=== PATIENT | male | born 1955 | race Two or more races ===

== ENCOUNTER 2022-05-21 10:27 | Outpatient (CLI) | payer OTHER | END 2022-05-21 10:30 | disposition home or self-care (01) | LOC: NUCLEAR 10:27 | PROVIDERS: ATTEND Internal Medicine Cardiovascular Disease | DX: I10 Essential (primary) hypertension (principal); J44.9 Chronic obstructive pulmonary disease, unspecified ==

== ENCOUNTER 2022-05-27 10:53 | Outpatient (CLI) | payer OTHER | END 2022-05-27 10:54 | disposition home or self-care (01) | LOC: LAB 10:53 | PROVIDERS: ATTEND Internal Medicine Cardiovascular Disease | DX: I10 Essential (primary) hypertension (principal); E11.9 Type 2 diabetes mellitus without complications; E03.9 Hypothyroidism, unspecified; E78.2 Mixed hyperlipidemia; Z12.11 Encounter for screening for malignant neoplasm of colon; E55.9 Vitamin D deficiency, unspecified; N40.0 Benign prostatic hyperplasia without lower urinary tract symptoms; J44.9 Chronic obstructive pulmonary disease, unspecified ==

== ENCOUNTER → 2022-05-27 | Outpatient (CLI) | payer OTHER | END | disposition home or self-care (01) | LOC: SONOGRAMA 12:08 | PROVIDERS: ATTEND Internal Medicine Cardiovascular Disease | DX: R10.9 Unspecified abdominal pain (principal); N40.0 Benign prostatic hyperplasia without lower urinary tract symptoms ==

== ENCOUNTER 2022-05-28 07:23 | Outpatient (CLI) | payer OTHER | END 2022-05-28 07:24 | disposition home or self-care (01) | LOC: LAB 07:23 | PROVIDERS: ATTEND Internal Medicine Cardiovascular Disease | DX: I10 Essential (primary) hypertension (principal); E11.9 Type 2 diabetes mellitus without complications; E03.9 Hypothyroidism, unspecified; E78.2 Mixed hyperlipidemia; Z12.11 Encounter for screening for malignant neoplasm of colon; E55.9 Vitamin D deficiency, unspecified; N40.0 Benign prostatic hyperplasia without lower urinary tract symptoms ==

== ENCOUNTER 2022-08-15 10:41 | Outpatient (CLI) | payer OTHER | END 2022-08-15 10:43 | disposition home or self-care (01) | LOC: LAB 10:41 | PROVIDERS: ATTEND Internal Medicine Nephrology | DX: N18.31 Chronic kidney disease, stage 3a (principal); R80.0 Isolated proteinuria ==

== ENCOUNTER → 2022-09-09 13:34 | Outpatient (CLI) | payer OTHER | END | disposition home or self-care (01) | LOC: LAB 13:34 | PROVIDERS: ATTEND Internal Medicine Cardiovascular Disease | DX: J11.1 Influenza due to unidentified influenza virus with other respiratory manifestations (principal); A49.3 Mycoplasma infection, unspecified site; Z20.822 Contact with and (suspected) exposure to COVID-19 ==

== ENCOUNTER 2022-10-14 11:12 | Outpatient (CLI) | payer OTHER | END 2022-10-14 11:15 | disposition home or self-care (01) | LOC: LAB 11:12 | PROVIDERS: ATTEND Urology | DX: N40.1 Benign prostatic hyperplasia with lower urinary tract symptoms (principal); I10 Essential (primary) hypertension; E78.5 Hyperlipidemia, unspecified; Z12.5 Encounter for screening for malignant neoplasm of prostate; N39.0 Urinary tract infection, site not specified ==

== ENCOUNTER 2022-12-18 12:00 | Outpatient (CLI) | payer OTHER | END 2022-12-18 12:03 | disposition home or self-care (01) | LOC: LAB 12:00 | PROVIDERS: ATTEND Internal Medicine Nephrology | DX: N18.2 Chronic kidney disease, stage 2 (mild) (principal); R80.0 Isolated proteinuria; I11.9 Hypertensive heart disease without heart failure; E78.00 Pure hypercholesterolemia, unspecified; E55.9 Vitamin D deficiency, unspecified ==

== ENCOUNTER 2022-12-27 12:27 | Outpatient (CLI) | payer OTHER | END 2022-12-27 12:29 | disposition home or self-care (01) | LOC: LAB 12:27 | PROVIDERS: ATTEND Internal Medicine Cardiovascular Disease | DX: J11.1 Influenza due to unidentified influenza virus with other respiratory manifestations (principal); A49.3 Mycoplasma infection, unspecified site; Z20.822 Contact with and (suspected) exposure to COVID-19 ==

== ENCOUNTER 2023-01-14 09:19 | Outpatient (CLI) | payer OTHER | END 2023-01-14 09:22 | disposition home or self-care (01) | LOC: LAB 09:19 | PROVIDERS: ATTEND Internal Medicine Cardiovascular Disease | DX: E11.9 Type 2 diabetes mellitus without complications (principal); E03.9 Hypothyroidism, unspecified; E78.2 Mixed hyperlipidemia; I10 Essential (primary) hypertension ==

== ENCOUNTER 2023-02-28 08:52 | Outpatient (CLI) | payer OTHER | END 2023-02-28 08:53 | disposition home or self-care (01) | LOC: LAB 08:52 | DX: N40.1 Benign prostatic hyperplasia with lower urinary tract symptoms (principal); N39.0 Urinary tract infection, site not specified ==

== ENCOUNTER 2023-07-28 08:04 | Outpatient (CLI) | payer OTHER ==
[2023-07-28 08:45] LABS: HEMATOCRIT 38.7 % (39.0-48.0); HEMOGLOBIN 13.1 g/dL (13-16.00); MEAN CELL VOLUME 90.2 fL (80.0-100.00); MEAN CORPUSCULAR HEMOGLOBIN 30.5 pg (27.00-32.0); MEAN CORPUSCULAR HGB CONC 33.8 g/dl (32.0-36.0); PLATELET COUNT 156 K/uL (150-450); RED BLOOD COUNT 4.29 M/uL (4.00-6.00); RED CELL DISTRIBUTION WIDTH 13.6 % (11.5-14.5)
[2023-07-28 09:00] LABS: PH,URINE 7.5 (5.0-8.0); URINE APPEARANCE Clear; URINE BILIRRUBIN Negative (NEGATIVE); URINE BLOOD Negative; URINE COLOR Yellow; URINE GLUCOSE Negative (NEGATIVE); URINE LEUKOCYTE Negative; URINE NITRATE Negative; URINE PROTEIN Negative (NEGATIVE); URINE UROBILINOGEN 0.2 E.U./dl
[2023-07-28 09:03] LABS: URINE EPITHELIAL CELLS 0.3 uL (0.0-38.8); URINE RBC 1.1 uL (0.0-20.8); URINE WBC 0.3 uL (0.0-23.2)
[2023-07-28 10:28] LABS: ALBUMIN 3.4 gm/dL (3.4-5.0); BILIRUBIN TOTAL 0.31 mg/dL (0.3-1.2); CALCIUM 8.7 mg/dL (8.5-10.1); CHOL HDL RATIO 2.6 (0-5.0); CREATININE SERUM 1.19 mg/dL (0.70-1.30); GFR 60.44; GLOBULINA 3.6 G/DL (2.4-3.5); POTASSIUM 4.14 mEq/L (3.5-5.1); PROSTATIC SPECIFIC ANTIGEN 0.5 NG/ML (0.010-4.00); T4 TOTAL 8.86 UG/DL (4.5-12.1); TSH 1.14 uIU/mL (0.358-3.74)
[2023-07-28 10:47] LABS: T3 TOTAL 1.26 ng/ml (0.846-2.02); VITAMIN D3 25 HYDROXY 38.08 ng/ml (30-120)
[2023-07-28 16:31] LABS: ob NEGATIVE (NEGATIVE)
== END 2023-07-28 08:05 | disposition home or self-care (01) ==
LOC: LAB 08:04
PROVIDERS: ATTEND Internal Medicine Cardiovascular Disease
DX: I10 Essential (primary) hypertension (principal); E11.9 Type 2 diabetes mellitus without complications; E03.9 Hypothyroidism, unspecified; E78.2 Mixed hyperlipidemia; Z12.11 Encounter for screening for malignant neoplasm of colon; N40.0 Benign prostatic hyperplasia without lower urinary tract symptoms; E55.9 Vitamin D deficiency, unspecified

== ENCOUNTER → 2023-08-01 07:39 | Outpatient (CLI) | payer OTHER ==
[2023-08-01 08:13] LABS: HEMATOCRIT 38.4 % (39.0-48.0); HEMOGLOBIN 13.1 g/dL (13-16.00); MEAN CELL VOLUME 89.3 fL (80.0-100.00); MEAN CORPUSCULAR HEMOGLOBIN 30.3 pg (27.00-32.0); PLATELET COUNT 173 K/uL (150-450); RED CELL DISTRIBUTION WIDTH 13.6 % (11.5-14.5)
[2023-08-01 08:37] LABS: MYCOPLASMA PNEUMONIAE IGM NON REACTIVE (NO REACTIVE)
== END | disposition home or self-care (01) ==
LOC: LAB 07:39
PROVIDERS: ATTEND Internal Medicine Cardiovascular Disease
DX: J11.1 Influenza due to unidentified influenza virus with other respiratory manifestations (principal); A49.3 Mycoplasma infection, unspecified site; Z20.822 Contact with and (suspected) exposure to COVID-19

== ENCOUNTER → 2024-02-04 | Outpatient (CLI) | payer OTHER ==
[2024-02-04 12:26] LABS: URINE BILIRRUBIN Negative (NEGATIVE); URINE BLOOD Negative; URINE COLOR Yellow; URINE GLUCOSE Negative (NEGATIVE); URINE KETONE Negative (NEGATIVE); URINE LEUKOCYTE Negative; URINE NITRATE Negative; URINE PROTEIN Negative (NEGATIVE)
[2024-02-04 12:31] LABS: URINE BACTERIA 25.1 uL (0.0-1933)
[2024-02-04 12:35] LABS: URINE APPEARANCE CLEAR; URINE CAST 0.15 uL (0.0-1.40); URINE EPITHELIAL CELLS 0.7 uL (0.0-38.8); URINE RBC 1.2 uL (0.0-20.8); URINE WBC 1.5 uL (0.0-23.2)
[2024-02-04 12:46] LABS: HEMATOCRIT 37.3 % (39.0-48.0); HEMOGLOBIN 12.7 g/dL (13-16.00); MEAN CELL VOLUME 89.4 fL (80.0-100.00); MEAN CORPUSCULAR HEMOGLOBIN 30.4 pg (27.00-32.0); PLATELET COUNT 186 K/uL (150-450); RED BLOOD COUNT 4.18 M/uL (4.00-6.00); RED CELL DISTRIBUTION WIDTH 13.5 % (11.5-14.5)
[2024-02-04 14:00] LABS: ALBUMIN 3.6 gm/dL (3.4-5.0); BILIRUBIN TOTAL 0.47 mg/dL (0.3-1.2); CALCIUM 8.8 mg/dL (8.5-10.1); CHOL HDL RATIO 2.9 (0-5.0); CREATININE SERUM 1.11 mg/dL (0.70-1.30); GFR 65.49; GLOBULINA 3.8 G/DL (2.4-3.5); POTASSIUM 4.24 mEq/L (3.5-5.1); TOTAL PROTEIN 7.4 gm/dL (6.4-8.2)
== END | disposition home or self-care (01) ==
LOC: LAB 11:46
PROVIDERS: ATTEND Internal Medicine Cardiovascular Disease
DX: E11.9 Type 2 diabetes mellitus without complications (principal); E78.2 Mixed hyperlipidemia; I10 Essential (primary) hypertension

== ENCOUNTER 2024-05-17 10:01 | Outpatient (CLI) | payer OTHER ==
[2024-05-17 11:00] LABS: PH,URINE 6.5 (5.0-8.0); URINE APPEARANCE Clear; URINE BILIRRUBIN Negative (NEGATIVE); URINE BLOOD Negative; URINE COLOR Yellow; URINE GLUCOSE Negative (NEGATIVE); URINE KETONE Negative (NEGATIVE); URINE LEUKOCYTE Negative; URINE NITRATE Negative; URINE PROTEIN Negative (NEGATIVE); URINE UROBILINOGEN 0.2 E.U./dl
[2024-05-17 11:02] LABS: URINE RBC 3.3 uL (0.0-20.8)
[2024-05-17 11:05] LABS: URINE EPITHELIAL CELLS 0.6 uL (0.0-38.8); URINE WBC 0.6 uL (0.0-23.2)
[2024-05-17 11:13] LABS: HEMATOCRIT 40.1 % (39.0-48.0); HEMOGLOBIN 13.7 g/dL (13-16.00); MEAN CELL VOLUME 90.2 fL (80.0-100.00); MEAN CORPUSCULAR HEMOGLOBIN 30.8 pg (27.00-32.0); MEAN CORPUSCULAR HGB CONC 34.1 g/dl (32.0-36.0); PLATELET COUNT 158 K/uL (150-450); RED BLOOD COUNT 4.44 M/uL (4.00-6.00); RED CELL DISTRIBUTION WIDTH 13.2 % (11.5-14.5)
[2024-05-17 11:31] LABS: CREATININE URINE RANDOM 93.1 MG/DL (30-125)
[2024-05-17 12:09] LABS: CHOL HDL RATIO 2.7 (0-5.0); CREATININE SERUM 1.14 mg/dL (0.70-1.30); GFR 63.32; POTASSIUM 4.7 mEq/L (3.5-5.1)
== END 2024-05-17 11:36 | disposition home or self-care (01) ==
LOC: LAB 10:01
PROVIDERS: ATTEND Internal Medicine Cardiovascular Disease
DX: N18.31 Chronic kidney disease, stage 3a (principal); N25.81 Secondary hyperparathyroidism of renal origin; I10 Essential (primary) hypertension; E11.9 Type 2 diabetes mellitus without complications; E03.9 Hypothyroidism, unspecified; E78.2 Mixed hyperlipidemia; D64.0 Hereditary sideroblastic anemia; Z12.11 Encounter for screening for malignant neoplasm of colon; N40.0 Benign prostatic hyperplasia without lower urinary tract symptoms; E55.9 Vitamin D deficiency, unspecified; M81.0 Age-related osteoporosis without current pathological fracture; N39.0 Urinary tract infection, site not specified

== ENCOUNTER → 2024-12-16 08:22 | Outpatient (CLI) | payer OTHER ==
[2024-12-16 09:05] LABS: PH,URINE 5.5 (5.0-8.0); URINE APPEARANCE Clear; URINE BILIRRUBIN Negative (NEGATIVE); URINE BLOOD Negative; URINE COLOR Yellow; URINE GLUCOSE Negative (NEGATIVE); URINE KETONE Negative (NEGATIVE); URINE LEUKOCYTE Negative; URINE NITRATE Negative; URINE PROTEIN Negative (NEGATIVE); URINE UROBILINOGEN 0.2 E.U./dl
[2024-12-16 09:08] LABS: BASO % 0.7 % (0.1-1.2); EOS # 0.13 (0.04-0.54); EOS % 2.3 % (0.7-7.0); HEMOGLOBIN 12.4 g/dL (13.7-17.5); LYMPH # 1.51 (1.18-3.74); LYMPH % 26.7 % (19.3-53.1); MONO # 0.63 (0.24-0.82); MONO % 11.1 % (4.7-12.5); NEUT # 3.33 (1.56-6.13); NEUT % 58.8 % (34.0-71.1); PLATELET COUNT 174 K/uL (163-369); RED BLOOD COUNT 4.13 M/uL (4.63-6.08); RED CELL DISTRIBUTION WIDTH 13.3 % (11.6-14.4)
[2024-12-16 09:26] LABS: URINE BACTERIA 1.2 uL (0.0-1933); URINE CAST 0.14 uL (0.0-1.40); URINE EPITHELIAL CELLS 0.4 uL (0.0-38.8); URINE RBC 0.5 uL (0.0-20.8); URINE WBC 0.6 uL (0.0-23.2)
[2024-12-16 10:22] LABS: CALCIUM 9.2 mg/dL (8.5-10.1); CHOL HDL RATIO 2.9 (0-5.0); CREATININE SERUM 1.28 mg/dL (0.70-1.30); GFR 55.4; POTASSIUM 4.37 mEq/L (3.5-5.1)
== END | disposition home or self-care (01) ==
LOC: LAB 08:22
PROVIDERS: ATTEND Internal Medicine Cardiovascular Disease
DX: I10 Essential (primary) hypertension (principal); E11.9 Type 2 diabetes mellitus without complications; E03.9 Hypothyroidism, unspecified; E78.2 Mixed hyperlipidemia